=== PATIENT | female | born 1955 | race Caucasian/White ===

== ENCOUNTER 2017-11-27 08:22 | Emergency (ER) | payer OTHER ==
[2017-11-27 08:25] VITALS: TEMP 36.5; Ht 165.1 cm
[2017-11-27] MEDS ORDERED: TRAMADOL HCL 50 MG TAB PO STA (08:52)
--- NOTE | 2017-11-27 09:27 | DIAGNOSTIC IMAGING REPORT ---
R WRIST MIN 3 VIEWS ROUTINE CLINICAL HISTORY: 62 years-old Female presenting with fall, right wrist pain. TECHNIQUE: Frontal, bilateral oblique, and lateral views of the right wrist were obtained. COMPARISON: None. FINDINGS: Comminuted intra-articular fracture of the distal radial catheter is cysts. There is less than 1 mm of cortical step-off at the articular surface. The fracture plane is in and inverted Y shape violating the mid articular surface immediately lateral to the scapholunate interval. The transverse component of the fracture plane does not involve the radioulnar articulation. There is mild impaction at the dorsal aspect of the fracture plane with apex volar angulation (30 degrees). Osteopenia suspected. Additionally, mildly displaced fracture of the ulnar styloid process. Lucency at the proximal pole of the hamate is felt to most likely be degenerative in etiology. IMPRESSION: Mildly impacted, angulated, comminuted intra-articular fracture of the distal radial metaphysis (Colles' fracture). Electronically signed by: Valdemar Paula M.D. 11/27/2017 9:26 AM Dictated Date/Time: 11/27/2017 9:22 AM
[2017-11-27 11:26] VITALS: BP 111/66; PULSE 47; O2SAT 99
--- NOTE | 2017-11-27 11:37 | EMERGENCY ROOM VISIT NOTE ---
History Report prepared by Elsaibnasir: Glen Yu Under the Supervision of: Dr. Harjeet Cueva D.O. First contact with patient: 08:47 Chief Complaint: ARM PAIN Stated Complaint: RT ARM INJURY History of Present Illness The patient is a 62 year old female who presents to the Emergency Room with complaints of constant pain in her right wrist and left ankle that began following a falling episode that occurred just shortly prior to arrival. The patient states that she was walking into [employer] when she slipped and fell on the wet floor. She denies any chest or abdominal pain. Source of History: patient Onset: Just shortly prior to arrival Position: wrist (right) Quality: other (Pain form a fall) Timing: constant Associated Symptoms: No chest pain, No abdominal pain Review of Systems See HPI for pertinent positives & negatives. A total of 10 systems reviewed and were otherwise negative. Past Medical & Surgical None stated. Family History Diabetes mellitus Social History Smoking Status: Never Smoker Drug Use: none Marital Status: Housing Status: lives with significant other Current/Historical Medications No Active Prescriptions or Reported Meds Allergies Coded Allergies: Sulfa Antibiotics (Unverified Allergy, Intermediate, HIVES, 11/27/17) Physical Exam Vital Signs Date Time Temp Pulse Resp B/P (MAP) Pulse Ox O2 Delivery O2 Flow Rate FiO2 11/27/17 11:26 47 16 111/66 99 11/27/17 10:09 42 18 134/74 97 Room Air 11/27/17 09:21 41 18 138/70 98 Room Air 11/27/17 08:25 36.5 47 18 83/53 96 Room Air Physical Exam CONSTITUTIONAL/VITAL SIGNS: Reviewed / noted above. GENERAL: Non-toxic in appearance. INTEGUMENTARY: Warm, dry, and Temperance. HEAD: Normocephalic. EYES: without scleral icterus or trauma. ENT/OROPHARYNX: clear and moist. LYMPHADENOPATHY/NECK: Is supple without lymphadenopathy or meningismus. RESPIRATORY: Lungs clear and equal. CARDIOVASCULAR: Regular rate and rhythm. GI/ABDOMEN: Soft and nontender. No organomegaly or pulsatile mass. No rebound or guarding. Normal bowel sounds. EXTREMITIES: Warm and well perfused. There is a mild deformity to the right wrist, neurovascularly intact distal to the injury. BACK: No CVA tenderness. NEUROLOGICAL: Intact without focal deficits. PSYCHIATRIC: normal affect. MUSCULOSKELETAL: Normally developed with good muscle tone. Medical Decision & Procedures ER Provider Diagnostic Interpretation: Radiology results as stated below per my review and radiologist interpretation: R WRIST MIN 3 VIEWS ROUTINE CLINICAL HISTORY: 62 years-old Female presenting with fall, right wrist pain. TECHNIQUE: Frontal, bilateral oblique, and lateral views of the right wrist were obtained. COMPARISON: None. FINDINGS: Comminuted intra-articular fracture of the distal radial catheter is cysts. There is less than 1 mm of cortical step-off at the articular surface. The fracture plane is in and inverted Y shape violating the mid articular surface immediately lateral to the scapholunate interval. The transverse component of the fracture plane does not involve the radioulnar articulation. There is mild impaction at the dorsal aspect of the fracture plane with apex volar angulation (30 degrees). Osteopenia suspected. Additionally, mildly displaced fracture of the ulnar styloid process. Lucency at the proximal pole of the hamate is felt to most likely be degenerative in etiology. IMPRESSION: Mildly impacted, angulated, comminuted intra-articular fracture of the distal radial metaphysis (Colles' fracture). Electronically signed by: Valdemar Paula M.D Medications Administered Medications (Trade) Dose Ordered Sig/Ryan Route Start Time Stop Time Status Last Admin Dose Admin Tramadol HCl (Ultram Tab) 100 mg NOW STAT PO 11/27/17 08:52 11/27/17 08:54 DC 11/27/17 08:58 100 MG ED Course 0849: Previous medical records were reviewed. The patient was evaluated in room A9. A complete history and physical examination was performed. 0852: Ordered Tramadol 100 mg PO. 1139: On reevaluation, the patient is resting in bed. I discussed the results and findings with the patient. She verbalized agreement of the treatment plan. The patient was discharged home. Medical Decision Differential diagnosis: Etiologies such as fracture, dislocation, neurovascular compromise, compartment syndrome, soft tissue injury, as well as others were entertained. This is a 62-year-old female who presents to the ED with a chief complaint of a fall. The patient states that she slipped on the wet floor at a local store. She states that she was wearing flip-flops. The patient injured her right wrist. She denies other injuries or striking her head or loss of. X-ray of the right wrist reveals a mildly displaced Colles' fracture. The patient was told the results. She will follow-up with outpatient orthopedics. Dr. Siegel is administrative professional. Referral was provided for him. She is felt to be stable for discharge. She was given some Ultram for pain. I did page orthopedics. After over 60 minutes, they did not return a call. The patient was discharged for outpatient follow-up Medication Reconcilliation Current Medication List: was personally reviewed by me Blood Pressure Screening Patient's blood pressure: Normal blood pressure Impression Primary Impression: Colles' fracture Scribe Attestation The scribe's documentation has been prepared under my direction and personally reviewed by me in its entirety. I confirm that the note above accurately reflects all work, treatment, procedures, and medical decision making performed by me. Departure Information Dispostion Home / Self-Care Prescriptions No Active Prescriptions or Reported Meds Referrals Oscar Siegel D.O. Patient Instructions ED Fx Colles Wrist Redu Requ, My [facility] Additional Instructions Follow-up with Dr. Siegel, orthopedist, for your wrist fracture. Call today for an appointment. Take Tylenol/Motrin as needed for pain. Return to the emergency department for worsening or new symptoms or any concerns. You have been examined and treated today on an emergency basis only. This is not a substitute for, or an effort to provide, complete comprehensive medical care. It is impossible to recognize and treat all injuries or illnesses in a single emergency department visit. It is therefore important that you follow up closely with your doctor. Call as soon as possible for an appointment.
== END 2017-11-27 11:59 | disposition home or self-care (01) ==
LOC: C.EDB 08:23 → C.EDA 11:59
DX: S52.531A Colles' fracture of right radius, initial encounter for closed fracture (principal); W01.0XXA Fall on same level from slipping, tripping and stumbling without subsequent striking against object, initial encounter; Y93.01 Activity, walking, marching and hiking; Y92.511 Restaurant or cafe as the place of occurrence of the external cause; Z88.2 Allergy status to sulfonamides

== ENCOUNTER → 2017-11-27 | Outpatient (CLI) | payer OTHER | END | disposition home or self-care (01) | LOC: C.CPL 15:35 | DX: S52.531A Colles' fracture of right radius, initial encounter for closed fracture (principal); X58.XXXA Exposure to other specified factors, initial encounter ==